=== PATIENT | female | born 1955 | race African-American/Black ===

== ENCOUNTER 2019-07-17 05:33 | Day surgery (SDC) | payer MEDICARE, OTHER ==
[~2019-07-17 05:33] MED LIST: ACET-66 PO; APIX5TAB PO; ASCO500 PO; ASPI-556 PO; FURO20 PO; INSU100V3 SQ; LEVO100 PO; LIDO700A15 TD; MELA5TAB3 PO; METO25 PO; MULT-1203 PO; OXYB5 PO; OXYC5 PO; PANT40TA25 PO; POTA8CAP20 PO; ROSU20TA23 PO; SODIUM CHLORIDE 0.9% 1,000 ML IV ONE
[2019-07-17] MEDS ORDERED: PROPOFOL 1% 20 ML VIAL IVP ONE (05:34)
[2019-07-17] MEDS ORDERED: LIDOCAINE/PF 2% 5 ML SYRINGE IVP ONE (05:34)
[2019-07-17] MEDS ORDERED: SODIUM CHLORIDE 0.9% 1,000 ML IV ONE (05:37)
[2019-07-17 07:38] LABS: GLUCOMETER DEV NAME(LOC) SDS.; GLUCOSE,POINT OF CARE 132 MG/DL (70-110)
== END 2019-07-17 09:50 | disposition home or self-care (01) ==
LOC: SURGERY 05:33
PROVIDERS: ATTEND Internal Medicine Gastroenterology
DX: K92.1 Melena (principal); R19.4 Change in bowel habit; I10 Essential (primary) hypertension; E11.9 Type 2 diabetes mellitus without complications; E78.5 Hyperlipidemia, unspecified; K64.8 Other hemorrhoids; E66.9 Obesity, unspecified; Z86.010 Personal history of colon polyps; Z79.899 Other long term (current) drug therapy; Z95.0 Presence of cardiac pacemaker; Z99.3 Dependence on wheelchair; Z98.890 Other specified postprocedural states
CPT/HCPCS: 45378; 82962; 93005; J2704; J3490; J7030